=== PATIENT | male | born 1955 | race Caucasian/White ===

== ENCOUNTER 2021-05-28 06:42 | Day surgery (SDC) | payer OTHER ==
[~2021-05-28] VITALS: Ht 180.3 cm; Wt 89.8 kg
[~2021-05-28 06:42] MED LIST: ATOR20TA PO; CARV25TA55 PO; DIGO0.1262 PO; FLUT110A IN; FURO1TAB33 PO; GEMF-19 PO; LIS5T PO; METF-490 PO; OMEG1CAP10 PO; OMEP20CA74 PO; WARF5TAB PO
[2021-05-28] MEDS ORDERED: VANCOMYCIN 1GM/250ML 250 ML IV ONE (08:58)
[2021-05-28] MEDS ORDERED: MIDAZOLAM HCL 2MG/2ML 2ml VIAL (1mg/ml) ONE (08:58)
[2021-05-28] MEDS ORDERED: fentaNYL CITRATE 100 MCG/2 ML VL ONE (08:58)
[2021-05-28] MEDS ORDERED: WARF2.5T39 PO (09:10)
[2021-05-28] MEDS ORDERED: FERR27TA2 PO (09:10)
[2021-05-28] MEDS ORDERED: FURO20TA3 PO (09:10)
[2021-05-28] MEDS ORDERED: GABA300C10 PO (09:10)
[2021-05-28] MEDS ORDERED: AMLO-489 PO (09:10)
[2021-05-28] MEDS ORDERED: PANT40T PO (09:10)
[2021-05-28] MEDS ORDERED: NIAC500T71 PO (09:10)
[2021-05-28] MEDS ORDERED: LIDOCAINE 2%HCL (LOCAL ANESTH.) INJ 10ml MDV ONE (09:10)
[2021-05-28] MEDS ORDERED: WARF5TAB71 PO (09:10)
[2021-05-28] MEDS ORDERED: LISI20TA28 PO (09:10)
[2021-05-28] MEDS ORDERED: INS7030I SC ×2 (09:10)
[2021-05-28] MEDS ORDERED: VANCOMYCIN HCL 1000 MG VL ONE ×2 (09:16→09:18)
== END 2021-05-28 12:00 | disposition home or self-care (01) ==
LOC: CATH 06:42
PROVIDERS: ATTEND Specialist
DX: I49.5 Sick sinus syndrome (principal); I10 Essential (primary) hypertension; I48.19 Other persistent atrial fibrillation; E78.5 Hyperlipidemia, unspecified; E11.9 Type 2 diabetes mellitus without complications; I48.91 Unspecified atrial fibrillation; J44.9 Chronic obstructive pulmonary disease, unspecified; Z88.0 Allergy status to penicillin; Z79.899 Other long term (current) drug therapy; Z82.49 Family history of ischemic heart disease and other diseases of the circulatory system; Z80.0 Family history of malignant neoplasm of digestive organs; Z83.3 Family history of diabetes mellitus; Z20.822 Contact with and (suspected) exposure to COVID-19
CPT/HCPCS: 33228; C1785; J2001; J2250; J3010; J3370; U0003; 99152; 99153